=== PATIENT | female | born 1975 | race Caucasian/White ===

== ENCOUNTER 2023-07-09 10:01 | Outpatient (CLI) | payer OTHER | END 2023-07-09 10:02 | disposition home or self-care (01) | LOC: LAB.N 10:01 | DX: E03.9 Hypothyroidism, unspecified (principal) | CPT/HCPCS: 36415; 84443 ==

== ENCOUNTER 2024-04-01 11:33 | Outpatient (CLI) | payer OTHER ==
[2024-04-01 17:41] LABS: BASOPHILS # (AUTO) 0.1 10^3/uL (0.0-0.1); EOSINOPHILS # (AUTO) 0.1 10^3/uL (0.0-0.7); EOSINOPHILS % (AUTO) 1.9 %; HCT - HEMATOCRIT 44.7 % (37.0-47.0); HGB - HEMOGLOBIN 13.8 g/dL (12.0-16.0); LYMPHOCYTES # (AUTO) 2.7 10^3/uL (1.5-3.5); LYMPHOCYTES % (AUTO) 39.1 %; MEAN CORPUSCULAR HEMOGLOBIN 29.6 pg (27.0-31.0); MEAN CORPUSCULAR HGB CONC 30.9 g/dL (32.0-36.0); MEAN CORPUSCULAR VOLUME 95.9 fL (81.0-99.0); MEAN PLATELET VOLUME 9.9 fL (7.9-10.8); MONOCYTES # (AUTO) 0.6 10^3/uL (0.0-1.0); MONOCYTES % (AUTO) 8.1 %; NEUTROPHILS # (AUTO) 3.5 10^3/uL (1.5-6.6); NEUTROPHILS % (AUTO) 49.8 %; PLT - PLATELET COUNT 313 10^3/uL (130-450); RED BLOOD COUNT 4.66 10^6/uL (4.20-5.40); RED CELL DISTRIBUTION WIDTH 12.8 % (12.0-15.0)
[2024-04-01 17:58] LABS: ALBUMIN 4.3 g/dL (3.2-5.5); ALBUMIN/GLOBULIN RATIO 1.4 (1.0-2.2); ALKALINE PHOSPHATASE 67 IU/L (42-121); ALT ALANINE AMINOTRANSFERASE 30 IU/L (10-60); AST ASPARTATE AMINOTRANSFERASE 28 IU/L (10-42); BILIRUBIN,TOTAL 0.6 mg/dL (0.2-1.0); BUN - BLOOD UREA NITROGEN 16 mg/dL (6-20); CALCIUM 10.3 mg/dL (8.5-10.3); CARBON DIOXIDE - CO2 27 mmol/L (21-32); CHLORIDE 102 mmol/L (101-111); CHOL/HDL RATIO 2.6 (<4.4); CHOLESTEROL 232 mg/dL; CREATININE 0.7 mg/dL (0.6-1.3); GFR - MDRD 89 (>89); GLUCOSE 88 mg/dL (74-104); HDL CHOLESTEROL 88 mg/dL; LDL CHOLESTEROL,CALCULATED 130 mg/dL; LDL/HDL RATIO 1.5 (<4.4); POTASSIUM 4.4 mmol/L (3.5-4.5); SODIUM 136 mmol/L (135-145); TOTAL PROTEIN 7.4 g/dL (6.4-8.9); TRIGLYCERIDES 69 mg/dL (48-352); VLDL CHOLESTEROL 14 mg/dL
== END 2024-04-01 11:34 | disposition home or self-care (01) ==
LOC: LAB.N 11:33
PROVIDERS: ATTEND Nurse Practitioner Family
DX: Z00.00 Encounter for general adult medical examination without abnormal findings (principal); E78.5 Hyperlipidemia, unspecified; E03.9 Hypothyroidism, unspecified
CPT/HCPCS: 36415; 80050; 80061; 83721; 84439

== ENCOUNTER 2024-05-27 07:18 | Outpatient (CLI) | payer OTHER ==
[2024-05-27 12:47] LABS: THYROID STIMULATING HORMONE 3.6 uIU/mL (0.34-5.60)
== END 2024-05-27 07:19 | disposition home or self-care (01) ==
LOC: LAB.N 07:18
PROVIDERS: ATTEND Nurse Practitioner Family
DX: E03.9 Hypothyroidism, unspecified (principal)
CPT/HCPCS: 36415; 81599; 82172; 82306; 83036; 84443; 86140

== ENCOUNTER 2024-06-23 10:22 | Outpatient (CLI) | payer OTHER ==
--- NOTE | 2024-06-23 11:09 | Sleep Patient Instructions ---
Sleep Center Visit Summary - Patient Visit Information Reason for Visit: Initial consult for evaluation of sleep disordered breathing and other sleep issues. - Patient Instructions Instructions Attached: Sleep Study, Sleep Study Home Monitor Additional Instructions: You will be completing a sleep study, either an in-lab polysomnography (PSG) or home sleep study (HST). You will follow-up in the sleep care office after the sleep study is completed to hear the results and talk about therapy, if needed. You will be called by our office staff to schedule this appointment, but you may contact us with any questions. - Clinic Information Contact: [facility] [address] [place] [id number] [email or web address] T: [phone]
--- NOTE | 2024-06-23 11:10 | SLEEP CARE CONSULTATION ---
Information from patient questionnaire entered by Janeth Leyva. I have reviewed and concur with the information entered by Janeth Leyva. This document represents the service I personally performed and the decisions made by me, [place] ARNP. History of Present Illness Service Date and Time: 06/23/2024 1022 Reason for Visit: New patient Chief Complaint: reports: Snoring, Fatigue Date of Onset: 25YRS Usual bedtime: 6717-8699 Time it takes to fall asleep: 10-5MINS Snores at night: Yes Observed to quit breathing while asleep: No Sleeps alone due to snoring: Yes Number of times waking at night: 1-2 Reasons for waking at night: reports: Snoring, Gasping for air, Other (UNKNOWN) Recalls having dreams: Yes Usually gets out of bed at: 3455-9180 Feels refreshed in the morning: No Morning headache: Yes Sleepy or fatigued during the day: Yes Ever fallen asleep while driving: No Takes day naps: Yes Dreams during day naps: Yes Prior sleep studies: No Additional HPI information: I had the pleasure of seeing ARTI ZAMUDIO today regarding the possibility of her having a sleep disorder. Her current complaints are snoring and fatigue. She says her snoring is getting worse. It has always been problematic but when it seemed to be getting worse she talked to her PCP. The patient tells me that she normally goes to bed around 8-10 pm, and it takes her approximately 10-15 minutes to fall asleep. She has been told that she snores loudly and irregularly at night. She has not been observed to stop breathing in her sleep. Her bed partner has gone to sleep in another room due to the loudness of her snoring. She can recall waking up on the average of 1-2 times during the night. Most of the time she wakes up because of feeling too hot, dreams, coughing or unknown reasons. She has occasionally awakened for her own snoring and having to gasp for air. There is not a lot of tossing and turning in her sleep. Generally she can recall having dreams. She usually wakes up at [id number] and does not feel refreshed. On weekends she sleeps in to 07-0800 and will feel rested. She wakes up often with a very dry throat. She usually does have a morning headache about couple times a month that resolve in a couple hours. During the day she complains of feeling sleepy and fatigued. She says it takes a while to get going in the morning. She will go back to bed after leaves for work if really tired. She has never fallen asleep while driving nor has any accident due to sleepiness. She usually does not take naps during the day. If she naps, upon falling asleep during the day she denies having vivid dreams. She denies having impaired concentration during the day. There is no somniloquy (sleep talking) or somnambulism (sleep walking). - Parasomnia Symptoms Ever been unable to move upon waking from sleep: No Walks in sleep: No Talks in sleep: No Ever acted out dreams in sleep: No Ever felt weak in the knees when startled or emotional: Yes ( has not fallen to ground) Bothered by creepy, crawly, restless sensations in legs: No Problems with memory or concentration: No Subjective Initial [place] Sleepiness Scale score: 8 (06/22/24) Past Medical History Past Medical History: reports: Hypothyroidism, Other (HYPERLIPDEMIA) Social History The patient's occupation is a NOT EMPLOYEED. Patient is and lives in [place]. Have you smoked in the past 12 months: No Alcohol use: Yes Alcohol amount and frequency: 1-2 DRINKS 1-2 X DAILY Caffeine use: Yes Caffeine amount and frequency: 2-3 CUPS 0.5 CAF COFFEE EVERYDAY Family History Family history of sleep disordered breathing: Yes Family Hx Sleep Apnea: Father: Snoring, Grandparent: Snoring Allergies and Home Medications Known drug allergies: No Drug allergies reviewed: Yes Home medication list reviewed: Yes (as listed) Allergy and home medication list: Allergies No Known Drug Allergies Allergy (Verified 06/23/24 10:33) Home Medications Medication Instructions Recorded Confirmed Last Taken Type Creatine Monohydrate [Cytotine Max] See Rx Instructions .ROUTE .COMPLEX 06/23/24 06/23/24 Unknown History Magnesium See Rx Instructions .ROUTE .COMPLEX 06/23/24 06/23/24 Unknown History Multivitamin See Rx Instructions .ROUTE .COMPLEX 06/23/24 06/23/24 Unknown History Psyllium Husk [Psyllium Fiber] See Rx Instructions .ROUTE .COMPLEX 06/23/24 06/23/24 Unknown History Rosuvastatin Calcium See Rx Instructions .ROUTE .COMPLEX 06/23/24 06/23/24 Unknown History Thyroid,Pork [[place] Thyroid] See Rx Instructions .ROUTE .COMPLEX 06/23/24 06/23/24 Unknown History Review of Systems Weight gain over past 5 years: 20-30 Cardiovascular: denies: high blood pressure Gastrointestinal: denies: heartburn Neurological: denies: headaches Psychiatric: denies: anxiety, depression Ear/Nose/Throat: reports: nasal congestion, dry mouth/throat (after waking), wisdom teeth removed, other (post nasal drip, clears throat a lot). denies: tonsillectomy Endocrine: reports: thyroid disease Immunologic: reports: allergies to food or environment Physical Exam Vital signs obtained and entered by: JANETH Harding MA Blood Pressure: 112/81 (RIGHT ARM) Cuff size: regular Heart Rate: 107 O2 Saturation: 98 Height: 5 ft 3 in Weight: 164 lb 6.4 oz Body Mass Index: 29.1 BMI Classification: Overweight Neck circumference: 14 Nostrils: patent to airflow Mouth and throat: narrow oropharynx Soft palate: long Hard palate: normal Uvula: normal Uvula visualization: 0% Mallampati Class IV Tongue: enlarged in size with teeth sweeney on lateral edges Tonsils: small Neck: normal w/o lymphadenopathy or thyromegaly Heart: regular rate and rhythm Lungs: clear bilaterally Impression and Plan 1. Suspected Obstructive Sleep Apnea-Hypopnea Syndrome, as suggested by a history of loud and irregular snoring, gasping or choking in sleep, unrefreshed sleep and fatigue. Narrow oropharynx and obesity are common predisposing factors for obstructive sleep apnea-hypopnea syndrome. I recommend proceeding to polysomnography to confirm the diagnosis and to assess severity. If the patient has significant sleep disordered breathing, a manual CPAP titration study will also be performed to find the optimal treatment pressure. I informed the patient of what the sleep studies involve and after some discussion, obtained agreement to proceed. The pathophysiology of obstructive sleep apnea-hypopnea syndrome was discussed with the patient and health risks of cardiovascular and cerebrovascular disease if not treated. 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 Patient agreed to plan. * Schedule polysomnography * Avoid long distance driving or driving when feeling sleepy. * Avoid alcohol, sedative and muscle relaxant around bedtime. * Attempt to lose weight. * Review instructions provided by trained office staff on how to prepare for the sleep study. * Return for follow-up after sleep study completed. Counseling Topics: Weight loss health impact Plan: PSG and follow up Visit Type: In Office Time Spent with Patient (minutes): 32 Provider Statement: I spent 100% of the Face to Face Visit with the patient with greater than 50% spent counseling the patient and coordination of care.
[2024-06-23 11:11] VITALS: BP 112/81; O2SAT 98
== END 2024-06-23 10:23 | disposition home or self-care (01) ==
LOC: SC 10:22
PROVIDERS: ATTEND Nurse Practitioner Family
DX: R06.83 Snoring (principal); G47.8 Other sleep disorders; R53.83 Other fatigue
CPT/HCPCS: 99203; 99212

== ENCOUNTER 2024-07-27 19:29 | Outpatient (CLI) | payer OTHER | END 2024-07-27 19:30 | disposition home or self-care (01) | LOC: SC 19:29 | PROVIDERS: ATTEND Nurse Practitioner Family | DX: R06.83 Snoring (principal); G47.33 Obstructive sleep apnea (adult) (pediatric); E66.3 Overweight; Z68.29 Body mass index [BMI] 29.0-29.9, adult | CPT/HCPCS: 95810 ==